=== PATIENT | male | born 1975 | race Caucasian/White ===

== ENCOUNTER 2023-08-21 18:11 | Emergency (ER) | payer MEDICAID ==
[~2023-08-21] VITALS: Ht 185.4 cm; Wt 70.0 kg
[2023-08-21 18:33] VITALS: O2SAT 97
[2023-08-21] MEDS ORDERED: METH-653 MT (18:39)
[2023-08-21] MEDS ORDERED: IBUP-2029 MT (18:39)
[2023-08-21] MEDS ORDERED: IBUPROFEN 600MG TABLET PO ONE (18:45)
[2023-08-21] MEDS ORDERED: METHOCARBAMOL 500MG TABLET PO ONE (18:45)
[2023-08-21 19:35] VITALS: BP 158/94
[2023-08-21 19:38] VITALS: PULSE 83; RESP 18; TEMP 98.9
== END 2023-08-21 19:39 | disposition home or self-care (01) ==
LOC: ER 18:11
DX: S13.4XXA Sprain of ligaments of cervical spine, initial encounter (principal); E11.9 Type 2 diabetes mellitus without complications; V49.49XA Driver injured in collision with other motor vehicles in traffic accident, initial encounter; Y93.89 Activity, other specified; Y92.89 Other specified places as the place of occurrence of the external cause; Y99.8 Other external cause status
CPT/HCPCS: 99283